=== PATIENT | female | born 1935 | race Caucasian/White ===

== ENCOUNTER 2023-10-21 16:45 | Emergency (ER) | payer MEDICARE ==
[~2023-10-21] VITALS: Ht 152.4 cm; Wt 72.0 kg
[2023-10-21] VITALS (12 sets, daily range): BP systolic 149–174; BP diastolic 71–150
[2023-10-21] MEDS ORDERED: ATORVASTATIN CA40 MG PO (17:05)
[2023-10-21] MEDS ORDERED: BAYER ASPIRIN E81 MG PO (17:05)
[2023-10-21] MEDS ORDERED: BENAZEPRIL40 M1 PO (17:06)
[2023-10-21] MEDS ORDERED: LEVOTHYROXIN112 MC1 PO (17:06)
[2023-10-21] MEDS ORDERED: HYDROCHLOROT25 MG PO (17:06)
[2023-10-21] MEDS ORDERED: MAG-G500 MG PO (17:06)
[2023-10-21] MEDS ORDERED: METFORMIN500 M2 PO (17:07)
[2023-10-21] MEDS ORDERED: GEMTESA75 MG (17:07)
[2023-10-21] MEDS ORDERED: LYRICA50 MG PO (17:07)
[2023-10-21 18:30] LABS: BASO% 0.4 % (0-3); HEMATOCRIT 34.2 % (37.0-47.0); IMMATURE GRANULOCYTES 0.1 % (0.0-5.0); LYMPH% 31.6 % (15-41); MEAN CELL VOLUME 86.8 fL CALC (80.0-100.0); MEAN CORPUSCULAR HGB 27.9 pG CALC (26.0-32.0); MEAN CORPUSCULAR HGB CONC 32.2 g/dL CAL (32.0-36.0); MONO% 8.9 % (2-13); NEUT# 4.08 thou/uL (2.00-7.15); RED BLOOD COUNT 3.94 mill/uL (4.20-5.60); RED CELL DISTRI WIDTH 15.2 % (11.5-15.5)
[2023-10-21 18:43] LABS: ALBUMIN 4.2 g/dL (3.2-5.0); BILIRUBIN, TOTAL 0.5 mg/dL (0.02-1.3); CREATININE 1.1 mg/dL (0.5-1.0); POTASSIUM 4.5 mmol/l (3.5-5.1); TOTAL PROTEIN 6.9 g/dL (6.3-8.2)
[2023-10-21] MEDS ORDERED: LYRICA75 MG PO (20:35)
== END 2023-10-21 20:47 | disposition home or self-care (01) ==
LOC: ED 16:45
PROVIDERS: Family Medicine
DX: E11.42 Type 2 diabetes mellitus with diabetic polyneuropathy (principal); I10 Essential (primary) hypertension; Z96.82 Presence of neurostimulator; Z79.84 Long term (current) use of oral hypoglycemic drugs; M79.605 Pain in left leg